=== PATIENT | female | born 2000 | race Caucasian/White ===

== ENCOUNTER 2020-03-23 19:46 | Emergency (ER) | payer BC, MEDICAID ==
--- NOTE | 2020-03-23 20:18 | EDM.PDOC ---
ED HPI GENERAL MEDICAL PROBLEM - General Chief Complaint: Lower Extremity Injury/Pain Stated Complaint: SLIPPED ON ICE AND INJURED RIGHT FOOT Time Seen by Provider: 03/23/20 20:12 Source of Information: Reports: Patient History Limitations: Reports: No Limitations - History of Present Illness INITIAL COMMENTS - FREE TEXT/NARRATIVE: 19-year-old female presents to the ED for evaluation of pain and swelling and bruising of her dorsal right foot. She reports she slipped on the ice wearing steel toed boots on her way to work 2 days ago. She fell directly to the pavement landing laterally on her right foot and ankle. Increasing pain primarily over the first metatarsal distally. There is ecchymosis and swelling across the dorsal aspect of the foot over the MTP joints of all toes. Painful to flex or extend the toes at this time. She believes he hyperflexed her toes during the fall. She denies injury to her head neck wrists or upper extremities. Denies any possibility of . Onset: Sudden Onset Date: 03/21/20 Onset Time: 08:00 Duration: Day(s):, Constant, Getting Worse Location: Reports: Lower Extremity, Right (Injury to the distal aspect of her right foot primarily dorsal aspect. Point of maximal tenderness is over the first MTP joint distally.) Quality: Reports: Ache, Throbbing Severity: Moderate Improves with: Reports: Rest Worsens with: Reports: Other Context: Reports: Trauma (Slipped and fell on the ice 2 mornings ago while walking to work). 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: Acetaminophen, NSAIDS (Motrin as needed.) Right Foot Pain Score (Numeric/FACES): 1 - Related Data Allergies Allergy/AdvReac Type Severity Reaction Status Date / Time diphenhydramine Allergy Other Verified 03/23/20 19:59 [From Benadryl] Latex, Natural Rubber Allergy Rash Verified 03/23/20 19:59 Home Meds: Home Meds Albuterol [Proventil HFA] 2 puff INH Q4H PRN 03/23/20 [History] Past Medical History Respiratory History: Reports: Asthma Social & Family History - Family History Family Medical History: No Pertinent Family History - Tobacco Use Tobacco Use Status *Q: Current Every Day Tobacco User Years of Tobacco use: 5 Packs/Tins Daily: 0.5 - Caffeine Use Caffeine Use: Reports: Coffee, Energy Drinks, Soda, Tea - Recreational Drug Use Recreational Drug Use: No - Living Situation & Occupation Living situation: Reports: Single Occupation: Unemployed (Currently unemployed at present.) Review of Systems - Review of Systems Review Of Systems: See Below Constitutional: Reports: No Symptoms Eyes: Reports: No Symptoms Ears: Reports: No Symptoms Nose: Reports: No Symptoms Mouth/Throat: Reports: No Symptoms Respiratory: Reports: No Symptoms Cardiovascular: Reports: No Symptoms GI/Abdominal: Reports: No Symptoms Genitourinary: Reports: No Symptoms Musculoskeletal: Reports: Foot Pain (Right foot pain see history of present illness) Skin: Reports: Bruising (Dorsal aspect of distal right foot) Neurological: Reports: No Symptoms Psychiatric: Reports: No Symptoms ED EXAM, GENERAL - Physical Exam Exam: See Below Exam Limited By: No Limitations General Appearance: Alert, WD/WN, No Apparent Distress, Other (Temperature is 36.1 with a heart rate of 115 and sinus. Respiratory is 18 with O2 sats of 97% room air BP slightly elevated 153/96. Patient does appear mildly apprehensive.) Eye Exam: Bilateral Eye: Normal Inspection, PERRL Head: Atraumatic, Normocephalic Neck: Normal Inspection, Supple, Non-Tender, Full Range of Motion. No: Lymphadenopathy (L), Lymphadenopathy (R) Respiratory/Chest: No Respiratory Distress, Lungs Clear, Normal Breath Sounds, No Accessory Muscle Use, Chest Non-Tender Cardiovascular: Normal Peripheral Pulses, Regular Rate, Rhythm, No Edema, No Gallop, No Murmur, No Rub Peripheral Pulses: 3+: Posterior Tibial (L), Posterior Tibial (R), Dorsalis Pedis (L), Dorsalis Pedis (R) Extremities: Other (Examination of the right foot shows ecchymosis across the dorsal aspect of the foot with slight swelling involving all of the distal MTP joints. There is slight thickening of the sole of her foot under the metatarsal heads as well. Axial point of tenderness over the first MTP joint. Pain with flexion or extension of the toes. No pain in the ankle or proximal) Neurological: Alert ( tib-fib.), Oriented, CN II-XII Intact, Normal Cognition Psychiatric: Normal Affect, Normal Mood Skin Exam: Warm, Intact, Ecchymosis (Phimosis dorsal aspect of the distal right foot over the MTP joints) Course - Vital Signs Last Recorded V/S: Last Vital Signs Temp 36.1 C 03/23/20 19:56 Pulse 115 H 03/23/20 19:56 Resp 18 03/23/20 19:56 BP 153/96 H 03/23/20 19:56 Pulse Ox 97 03/23/20 19:56 - Orders/Labs/Meds Orders: Active Orders 24 hr Category Date Time Status Foot Comp Min 3V Rt [CR] Stat Exams 03/23/20 20:13 Taken - Radiology Interpretation Free Text/Narrative:: 19-year-old female presents to the ED for evaluation of right foot injury that occurred over 2 days ago. She slipped on the ice and she believes hyper flexed her toes and then fell to the ground injuring the lateral aspect of her foot. Increasing pain over the last 2 days. Point of maximal tenderness is over the first MTP point P joint distally. Plan three-view x-ray of the right foot to be obtained. - Re-Assessments/Exams Free Text/Narrative Re-Assessment/Exam: 03/23/20 20:29 three-view x-ray of the right foot reveals no fractures of the digits or metatarsals right foot. Conservative treatment with Alex wrap. She is walking fairly well and will not need crutches. Alex wrap applied by me in the ED. Departure - Departure Time of Disposition: 20:44 Disposition: Home, Self-Care 01 Condition: Fair Clinical Impression: Contusion of right foot including toes Qualifiers: Encounter type: initial encounter Qualified Code(s): S90.31XA - Contusion of right foot, initial encounter - Discharge Information *PRESCRIPTION DRUG MONITORING PROGRAM REVIEWED*: Not Applicable *COPY OF PRESCRIPTION DRUG MONITORING REPORT IN PATIENT EMILE: Not Applicable Instructions: Foot Sprain, Contusion, [id number] Referrals: PCP,Not In Area [Primary Care Provider] - Forms: ED Department Discharge Additional Instructions: Evaluation in the emergency room tonight in regards to injuries to the right distal foot that occurred yesterday morning on your way to work when you slipped on the ice. It appears that you have hyperflexed your toes with contusion to the distal aspects of the first metatarsal joints. There is ecchymoses or bruising and swelling across the dorsal aspect of your right foot. X-rays do not reveal any broken bones in the toes or the metacarpal bones of your foot. Treatment is Alex wrap on during the day and off at night for the next 3 to 5 days. May apply heat to the area now since injury occurred 36 to 48 hours ago. Motrin 600 mg every 6 hours as needed for pain relief as needed. Expect return to normal function over the next 10 to 12 days. Sepsis Event Note (ED) - Evaluation Sepsis Screening Result: No Definite Risk - Focused Exam Vital Signs: Vital Signs Temp Pulse Resp BP Pulse Ox 03/23/20 19:56 36.1 C 115 H 18 153/96 H 97 - My Orders Last 24 Hours: My Active Orders 03/23/20 20:13 Foot Comp Min 3V Rt [CR] Stat - Assessment/Plan Last 24 Hours: My Active Orders 03/23/20 20:13 Foot Comp Min 3V Rt [CR] Stat
--- NOTE | 2020-03-24 09:35 | CR ---
Right foot: 4 views of the right foot were obtained. Comparison: No previous study. No calcaneal spurs are seen. No acute fracture, dislocation or other bony abnormality is appreciated. Impression: 1. Nothing acute is appreciated on right foot exam. Diagnostic code #1
== END 2020-03-23 20:51 | disposition home or self-care (01) ==
LOC: JD.ED 19:46
DX: S90.31XA Contusion of right foot, initial encounter (principal); J45.909 Unspecified asthma, uncomplicated; Z88.6 Allergy status to analgesic agent; Z91.040 Latex allergy status; Z72.0 Tobacco use; W00.0XXA Fall on same level due to ice and snow, initial encounter
CPT/HCPCS: 73630-26-RT; 73630-RT; 99282; 99283-25

== ENCOUNTER 2022-02-02 19:37 | Emergency (ER) | payer SELFPAY ==
[2022-02-02 20:01] VITALS: BP 139/93; PULSE 91
== END 2022-02-02 21:10 | disposition left against medical advice (07) ==
LOC: JD.ED 19:37
DX: Z53.21 Procedure and treatment not carried out due to patient leaving prior to being seen by health care provider (principal)

== ENCOUNTER 2022-02-20 19:00 | Emergency (ER) | payer MEDICAID ==
[2022-02-20] MEDS ORDERED: Albuterol 0.083% 2.5 MG/3 ML Neb Soln NEB ONE (19:35)
[2022-02-20] MEDS ORDERED: predniSONE 20 MG Tab PO ONE (19:48)
== END 2022-02-20 20:53 | disposition home or self-care (01) ==
LOC: JD.ED 19:00
DX: J45.901 Unspecified asthma with (acute) exacerbation (principal); Z88.8 Allergy status to other drugs, medicaments and biological substances; Z91.040 Latex allergy status; Z88.1 Allergy status to other antibiotic agents; Z79.899 Other long term (current) drug therapy
CPT/HCPCS: 71045; 71045-26; 94640; 99285

== ENCOUNTER 2022-02-21 10:37 | Emergency (ER) | payer MEDICAID ==
[2022-02-21] MEDS ORDERED: Albuterol/Ipratropium 3.0-0.5 MG/3 ML Neb Soln NEB ONE (12:02)
== END 2022-02-21 13:51 | disposition home or self-care (01) ==
LOC: JD.ED 10:37
DX: J45.901 Unspecified asthma with (acute) exacerbation (principal); Z88.8 Allergy status to other drugs, medicaments and biological substances; Z91.040 Latex allergy status
CPT/HCPCS: 36415; 80053; 85025; 85379; 86140; 94640; 99285; J7620-GY